=== PATIENT | female | born 1975 | race American Indian/Alaskan Native ===

== ENCOUNTER 2017-04-21 14:46 | Emergency (ER) | payer OTHER ==
[2017-04-21 15:06] VITALS: TEMP 98.9
[2017-04-21] MEDS ORDERED: Dexamethasone 4 mg/1 ml IM STA (15:33)
[2017-04-21] MEDS ORDERED: Dexamethasone 4 mg/1 ml ONE (15:47)
[2017-04-21 16:34] VITALS: BP 145/95; PULSE 65; RESP 18; O2SAT 99
--- NOTE | 2017-04-21 16:45 | C.PDOC ---
History Of Present Illness 42 year old female who presents to the ER with a complaint of left sided back pain for the past 2 weeks that radiates to the left leg. Patient notes she has a Hx of chronic back pain for the past year. Denies trauma, fever, abdominal pain, weakness, numbness, or incontinence. Chief Complaint (Nursing): Back Pain History Per: Patient History/Exam Limitations: no limitations Onset/Duration Of Symptoms: Days Current Symptoms Are (Timing): Still Present Quality Of Discomfort: "Pain" Pain Scale Rating Of: 6 Previous Symptoms: Back Pain, Chronic Pain Associated Symptoms: None Exacerbating Factor(s): Turning, Movement Recent travel outside of the [place]: No Past Medical History Reviewed: Historical Data, Nursing Documentation, Vital Signs Vital Signs: Last Vital Signs Temp 98.9 F 04/21/17 15:04 Pulse 65 04/21/17 16:34 Resp 18 04/21/17 16:34 BP 145/95 H 04/21/17 16:34 Pulse Ox 99 04/22/17 00:24 - Medical History PMH: No Chronic Diseases Surgical History: Cholecystectomy Family History: States: Unknown Family Hx - Social History Hx Alcohol Use: No Hx Substance Use: Yes - Immunization History Hx Tetanus Toxoid Vaccination: No Hx Influenza Vaccination: No Hx Pneumococcal Vaccination: No Review Of Systems Except As Marked, All Systems Reviewed And Found Negative. Genitourinary: Negative for: Dysuria, Incontinence, Hematuria Musculoskeletal: Positive for: Back Pain, Leg Pain Neurological: Negative for: Weakness, Numbness Physical Exam - Physical Exam Appears: Non-toxic, No Acute Distress Skin: Warm, Dry, No Rash Head: Atraumatic, Normacephalic Eye(s): bilateral: Normal Inspection, PERRL, EOMI Oral Mucosa: Moist Neck: Normal ROM, No Midline Cervical Tenderness, No Paracervical Tenderness, Supple Chest: Symmetrical, No Tenderness Cardiovascular: Rhythm Regular, No Friction Rub, No Murmur Respiratory: Normal Breath Sounds, No Accessory Muscle Use, No Wheezing Gastrointestinal/Abdominal: Soft, No Tenderness Back: No CVA Tenderness, No Vertebral Tenderness, Paraspinal Tenderness (Left Lumbar) Extremity: Normal ROM (x4), No Swelling Neurological/Psych: Oriented x3, Normal Speech, Normal Cognition, Normal Motor Gait: Steady ED Course And Treatment O2 Sat by Pulse Oximetry: 99 (Room air) Pulse Ox Interpretation: Normal Medical Decision Making Medical Decision Making: Plan: * Decadron * Valium * Toradol Patient is resting comfortably, is no longer having back pain, no fever, no bony tenderness, no numbness, no weakness, or abdominal pain. Patient is ambulatory in the emergency department with no signs of discomfort. Patient was advised to follow up with their physician in 1-2 days. Disposition - Disposition Referrals: Zacarias Leung MD [Non-Staff] - Daksha Menezes MD [Non-Staff] - Disposition: HOME/ ROUTINE Disposition Time: 16:42 Condition: GOOD Additional Instructions: Follow up with the medical doctor within 1-2 days, Return if worsened. Prescriptions: diaZEpam [Valium] 5 mg PO TID #21 tab Naproxen [Naprosyn] 500 mg PO BID #20 tab Instructions: Sciatica (ED) Forms: [employer] (Belarusian) - Clinical Impression Clinical Impression: Sciatica - Scribe Statement The provider has reviewed the documentation as recorded by the Scribe Daniel Boyle All medical record entries made by the Scribe were at my direction and personally dictated by me. I have reviewed the chart and agree that the record accurately reflects my personal performance of the history, physical exam, medical decision making, and the department course for this patient. I have also personally directed, reviewed, and agree with the discharge instructions and disposition.
== END 2017-04-21 16:52 | disposition home or self-care (01) ==
LOC: C.ER 14:46
DX: M54.32 Sciatica, left side (principal)
CPT/HCPCS: 96372; 99284; J1100; J1885

== ENCOUNTER 2018-01-21 10:30 | Emergency (ER) | payer MEDICAID, OTHER ==
[2018-01-21 10:37] VITALS: BP 138/97; PULSE 96; RESP 16; TEMP 98.4; O2SAT 99
--- NOTE | 2018-01-21 11:10 | C.PDOC ---
History Of Present Illness Pt c/o vaginal itching/discomfort. Time Seen by Provider: 01/21/18 10:42 Chief Complaint (Nursing): Female Genitourinary History Per: Patient Onset/Duration Of Symptoms: Days (about 2 weeks) Current Symptoms Are (Timing): Still Present Severity: Moderate Quality Of Discomfort: Other (itching) Alleviating Factors: None Additional History Per: Prior Records Abnormal Vaginal Bleeding: No Past Medical History Reviewed: Historical Data, Nursing Documentation, Vital Signs Vital Signs: Last Vital Signs Temp 98.4 F 01/21/18 10:35 Pulse 96 H 01/21/18 10:35 Resp 16 01/21/18 10:35 BP 138/97 H 01/21/18 10:35 Pulse Ox 99 01/21/18 10:35 - Medical History PMH: No Chronic Diseases Surgical History: Cholecystectomy Family History: States: Unknown Family Hx - Social History Hx Alcohol Use: No Hx Substance Use: Yes - Immunization History Hx Tetanus Toxoid Vaccination: No Hx Influenza Vaccination: No Hx Pneumococcal Vaccination: No Review Of Systems Except As Marked, All Systems Reviewed And Found Negative. Constitutional: Negative for: Fever, Weakness Cardiovascular: Negative for: Chest Pain Respiratory: Negative for: Shortness of Breath Gastrointestinal: Negative for: Vomiting, Abdominal Pain Genitourinary: Positive for: Rash (?). Negative for: Dysuria, Frequency, Vaginal Discharge, Vaginal Bleeding, Pelvic Pain Musculoskeletal: Negative for: Neck Pain, Back Pain Neurological: Negative for: Weakness, Numbness Physical Exam - Physical Exam Appears: Non-toxic, No Acute Distress Skin: Normal Color, Warm, Dry, No Rash Head: Atraumatic, Normacephalic Eye(s): bilateral: Normal Inspection, PERRL, EOMI Neck: Normal ROM, Supple Gastrointestinal/Abdominal: Soft, No Tenderness Back: No CVA Tenderness Pelvic: Vaginal Discharge (Mild, white, sticks to vaginal wall), Other (Mild erythma to vaginal hays. RN Cami mcnally) Extremity: Normal ROM Neurological/Psych: Oriented x3, Normal Motor, Normal Sensation ED Course And Treatment - Laboratory Results Urine POC: Negative O2 Sat by Pulse Oximetry: 99 Pulse Ox Interpretation: Normal Disposition Counseled Patient/Family Regarding: Studies Performed, Diagnosis, Need For Followup, Rx Given - Disposition Referrals: [facility] [Outside] Disposition: HOME/ ROUTINE Disposition Time: 11:11 Condition: STABLE Additional Instructions: Follow up with your doctor or in the clinic. Return to the ER if you develop fever, abdominal pain, worsening of symptoms or if you have any other concerns. Prescriptions: Terconazole 1 supp VG HS #3 supp.vag Instructions: Vaginal Yeast Infection (DC) - Clinical Impression Clinical Impression: Vulvovaginal candidiasis
== END 2018-01-21 11:27 | disposition home or self-care (01) ==
LOC: C.ER 10:30
DX: B37.3 Candidiasis of vulva and vagina (principal)

== ENCOUNTER 2018-02-22 23:08 | Emergency (ER) | payer MEDICAID ==
[2018-02-22 23:20] VITALS: BP 150/94; PULSE 78; TEMP 98.1; O2SAT 100
[2018-02-22] MEDS ORDERED: Epinephrine /Lidocaine HCL 1:100,000/2% 30 ml INJ STA (23:37)
[2018-02-22] MEDS ORDERED: Tdap Vaccine 0.5 ml Vial (10-64 yrs) IM ONE ×2 (23:37→23:44)
[2018-02-22] MEDS ORDERED: Lidocaine 2% MPF (5 ml) Inj ONE (23:43)
[2018-02-23] MEDS ORDERED: Bacitracin 500 Units/gm Oint Foilpak UD ONE (00:08)
--- NOTE | 2018-02-23 00:08 | C.PDOC ---
History Of Present Illness 42 year old female presents to the ER with a complaint of an area of pain and swelling under her chin. Patient states she had an ingrown hair to that area for the past week and 2 days ago it began swelling. She applied oregano oil on it in an attempt to dry it out, however, it bubbled up, she tried to squeeze it but her finger slipped causing an abrasion to the area. Denies fever, difficultly breathing, difficultly swallowing, or tongue/lip/throat swelling. Time Seen by Provider: 02/22/18 23:24 Chief Complaint (Nursing): Abnormal Skin Integrity History Per: Patient History/Exam Limitations: no limitations Onset/Duration Of Symptoms: Days Current Symptoms Are (Timing): Still Present Quality Of Symptoms: Painful, Swollen Recent travel outside of the [place]: No Past Medical History Reviewed: Historical Data, Nursing Documentation, Vital Signs Vital Signs: Last Vital Signs Temp 98.1 F 02/22/18 23:16 Pulse 78 02/22/18 23:16 Resp 20 02/23/18 00:23 BP 150/94 H 02/22/18 23:16 Pulse Ox 100 02/23/18 00:37 - Medical History PMH: No Chronic Diseases Surgical History: Cholecystectomy Family History: States: Unknown Family Hx - Social History Hx Alcohol Use: No Hx Substance Use: Yes - Immunization History Hx Tetanus Toxoid Vaccination: No Hx Influenza Vaccination: No Hx Pneumococcal Vaccination: No Review Of Systems Constitutional: Negative for: Fever, Chills ENT: Negative for: Throat Pain Skin: Positive for: Other (Area of pain and swelling) Physical Exam - Physical Exam Appears: Well, Non-toxic, No Acute Distress Skin: Warm, Dry Head: Atraumatic, Normacephalic Eye(s): bilateral: Normal Inspection, EOMI Nose: Normal Oral Mucosa: Moist Tongue: No Swelling Throat: Normal, No Erythema, No Exudate Neck: Supple, Other ( 4cm area of induration with erythema and peeling skin to the Submandibular area. Clear discharge noted) Chest: Symmetrical Cardiovascular: Rhythm Regular Respiratory: Normal Breath Sounds, No Accessory Muscle Use Extremity: Normal ROM Neurological/Psych: Oriented x3, Normal Speech ED Course And Treatment O2 Sat by Pulse Oximetry: 100 (Room air) Pulse Ox Interpretation: Normal Progress Note: Patient tolerated I&D with no difficulty, no purulent discharge drained. Discussed with pt importance of strict f/u, pt verbalized understanding. Case discussed with Dr Reed, agreed upon plan and treatment. - Incision & Drainage Of Abscess Anesthesia: Lidocaine 2% Prep Used: Sterile Water, Betadine Procedure: Incised W/Scalpel Blade#: (11) Disposition - Disposition Disposition: HOME/ ROUTINE Disposition Time: 00:06 Condition: STABLE Additional Instructions: Take probiotics and eat yogurt while on the antibiotics. Wound check in 24 to 48 hours. Return to ER right away if symptoms persist or worsen. 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 - Scribe Statement The provider has reviewed the documentation as recorded by the Scribraul Boyle All medical record entries made by the Maria Isabelibraul were at my direction and personally dictated by me. I have reviewed the chart and agree that the record accurately reflects my personal performance of the history, physical exam, medical decision making, and the department course for this patient. I have also personally directed, reviewed, and agree with the discharge instructions and disposition.
[2018-02-23 00:24] VITALS: RESP 20
== END 2018-02-23 00:23 | disposition home or self-care (01) ==
LOC: C.ER 23:08
DX: L03.221 Cellulitis of neck (principal); Z23 Encounter for immunization

== ENCOUNTER 2018-02-24 16:48 | Emergency (ER) | payer MEDICAID ==
[2018-02-24 16:51] VITALS: BMI 29.2
[2018-02-24 16:52] VITALS: PULSE 81
[2018-02-24] MEDS ORDERED: Tmp-Smz 800 mg-160 mg DS Tab PO STA (17:09)
[2018-02-24] MEDS ORDERED: Lidocaine 2% Inj (20ml) INFIL ONE (17:13)
[2018-02-24] MEDS ORDERED: Tmp-Smz 800 mg-160 mg DS Tab ONE (17:25)
[2018-02-24] MEDS ORDERED: Lidocaine Hydrochloride 5 ML INJ ONE (17:28)
[2018-02-24] MEDS ORDERED: Bacitracin 500 Units/gm Oint Foilpak UD ONE (18:25)
--- NOTE | 2018-02-24 18:41 | C.PDOC ---
History Of Present Illness 43-year-old female, presents to the emergency department with complaints of abscess under her chin for the past week. She was seen here two days ago. I&D attempted, and no pus expressed, resulting in her returning for wound evaluation. Patient applied oregano oil on skin and burned her skin. Time Seen by Provider: 02/24/18 17:00 Chief Complaint (Nursing): Wound Check History Per: Patient History/Exam Limitations: no limitations Onset/Duration Of Symptoms: Days Ago Current Symptoms Are (Timing): Still Present Past Medical History Reviewed: Historical Data, Nursing Documentation, Vital Signs Vital Signs: Last Vital Signs Temp 98.2 F 02/24/18 18:45 Pulse 81 02/24/18 18:45 Resp 16 02/24/18 18:45 BP 131/75 02/24/18 18:45 Pulse Ox 100 02/24/18 22:41 Surgical History: Cholecystectomy Family History: States: No Known Family Hx - Social History Hx Alcohol Use: No Hx Substance Use: Yes - Immunization History Hx Tetanus Toxoid Vaccination: No Hx Influenza Vaccination: No Hx Pneumococcal Vaccination: No Review Of Systems Constitutional: Negative for: Fever, Chills Neurological: Negative for: Weakness, Numbness Physical Exam - Physical Exam Appears: Non-toxic, No Acute Distress Skin: Warm, Other ((+) 3cm x 3cm area of swelling, erythema, tenderness and fluctuance to the sunmental area. 2nd degree partial thickness around the abscess with open vesicle. ) Head: Atraumatic, Normacephalic Eye(s): bilateral: Normal Inspection, PERRL, EOMI Nose: Normal Oral Mucosa: Moist, No Drooling, No Trismus Tongue: Normal Appearing, No Swelling Lips: Normal Appearing, No Swelling, No Lesions Teeth: Normal Dentition Gingiva: Normal Appearing Throat: No Erythema, No Exudate Neck: Normal ROM, Supple Chest: Symmetrical, No Tenderness Respiratory: No Accessory Muscle Use Extremity: Normal ROM Neurological/Psych: Oriented x3, Normal Speech, Normal Motor Gait: Steady ED Course And Treatment O2 Sat by Pulse Oximetry: 100 (RA) Pulse Ox Interpretation: Normal Medical Decision Making Medical Decision Making: Old records reviewed, the patient was seen in the ED on 02/22/18 for similar symptoms, I&D was attempted with no pus drainage. The patient was discharged with Rx for Antibiotics. The patient reports that she was has no taken the antibiotics due to financial reasons. A dose of keflex and Bactrim given here. The skin was burned from the oregano oil. The skin was falling off and wound was debrided. Bacitracin applied to burn. Disposition - Disposition Referrals: [facility] [Outside] Disposition: HOME/ ROUTINE Disposition Time: 18:39 (]) Condition: STABLE Additional Instructions: TAKE THE ANTIBIOTICS PRESCRIBED. RETURN IN 2 DAYS FOR PACKING REMOVAL AND WOUND CHECK. Prescriptions: Bacitracin Ointment [Bacitracin] 30 gm TOP BID #1 tube Instructions: Abscess Incision and Drainage (DC) Forms: [employer] (Chinese) - Clinical Impression Clinical Impression: Abscess - Scribe Statement The provider has reviewed the documentation as recorded by the Scribe (Hilda Milan) All medical record entries made by the Scribe were at my direction and personally dictated by me. I have reviewed the chart and agree that the record accurately reflects my personal performance of the history, physical exam, medical decision making, and the department course for this patient. I have also personally directed, reviewed, and agree with the discharge instructions and disposition. - Incision & Drainage Of Abscess Anesthesia: Lidocaine 2% Procedure: Incised W/Scalpel Blade#: (11), Drained Pus, Irrigated Cavity W/ Saline, Probed To Break Up Loculations, Packed W/Gauze
[2018-02-24 18:46] VITALS: BP 131/75; RESP 16; TEMP 98.2
[2018-02-24 21:53] VITALS: O2SAT 100
== END 2018-02-24 18:45 | disposition home or self-care (01) ==
LOC: C.ER 16:48
DX: L02.01 Cutaneous abscess of face (principal)

== ENCOUNTER 2018-02-26 14:44 | Emergency (ER) | payer MEDICAID ==
[2018-02-26 14:44] VITALS: BMI 29.2
[2018-02-26 15:07] VITALS: BP 132/82; PULSE 78; RESP 18; TEMP 98.8; O2SAT 98
[2018-02-26] MEDS ORDERED: Bacitracin 500 Units/gm Oint Foilpak UD TOP ONE (15:39)
--- NOTE | 2018-02-26 15:41 | C.PDOC ---
History Of Present Illness The patient is here for wound check and packing removal. The patient reports that the wound improved. Denies fever. Time Seen by Provider: 02/26/18 15:13 Chief Complaint (Nursing): Wound Check History Per: Patient History/Exam Limitations: no limitations Current Symptoms Are (Timing): Better Quality Of Symptoms: Itching Pain Scale Rating Of: 1 Recent travel outside of the [place]: No Past Medical History Vital Signs: Last Vital Signs Temp 98.8 F 02/26/18 15:04 Pulse 78 02/26/18 15:04 Resp 18 02/26/18 15:04 BP 132/82 02/26/18 15:04 Pulse Ox 98 02/26/18 15:41 - Medical History PMH: Anemia Surgical History: Cholecystectomy Family History: States: Unknown Family Hx - Social History Hx Alcohol Use: No Hx Substance Use: No - Immunization History Hx Tetanus Toxoid Vaccination: No Hx Influenza Vaccination: No Hx Pneumococcal Vaccination: No Review Of Systems Constitutional: Negative for: Fever, Chills ENT: Negative for: Ear Pain, Throat Pain, Throat Swelling Cardiovascular: Negative for: Chest Pain Respiratory: Negative for: Cough, Shortness of Breath Physical Exam - Physical Exam Appears: Non-toxic, No Acute Distress Skin: Normal Color, Warm, Other (Healing abscess to the submental region. Minimal swelling and erythema. No tenderness) Head: Atraumatic, Normacephalic Eye(s): bilateral: Normal Inspection Oral Mucosa: Moist Tongue: Normal Appearing, No Swelling Lips: Normal Appearing, No Swelling Neck: Normal ROM, Supple Neurological/Psych: Oriented x3, Normal Speech, Normal Cranial Nerves Gait: Steady ED Course And Treatment O2 Sat by Pulse Oximetry: 98 (on Ra) Pulse Ox Interpretation: Normal Progress Note: The patient was instructed to continue taking the antibiotics Medical Decision Making Medical Decision Making: Old records reviewed, the patient was last seen in the ED for abscess and I&D was performed. Packing was removed and there is no drainage. wound was cleansed and irrigated with saline. Bacitracin and sterile dressing applied. Disposition - Disposition Referrals: at [facility] [Outside] Disposition: HOME/ ROUTINE Disposition Time: 15:39 Condition: STABLE Additional Instructions: Wash twice a day with warm soap and water then apply bacitracin. Take antibiotics as prescribed. Return if worsened. Instructions: Wound Care (DC) Forms: [employer] (Jordanian) - Clinical Impression Clinical Impression: Wound check, abscess, Abscess packing removal
[2018-02-26] MEDS ORDERED: Bacitracin 500 Units/gm Oint Foilpak UD ONE (15:47)
== END 2018-02-26 16:20 | disposition home or self-care (01) ==
LOC: C.ER 14:44
DX: Z48.00 Encounter for change or removal of nonsurgical wound dressing (principal); L02.01 Cutaneous abscess of face